=== PATIENT | male | born 1980 | race Caucasian/White ===

== ENCOUNTER 2017-09-01 17:21 | Emergency (ER) | payer OTHER ==
[2017-09-01] MEDS: KETOROLAC 30 MG/ML VIAL (J1885) IV (19:01)
[2017-09-01] MEDS: AMPICILLIN SOD/SULBACTAM SOD 3 GM in D5W MINI-BAG PLUS 100 ML IV (19:03)
[2017-09-01 19:07] LABS: BASO % 0.7 % (0.0-1.0); EOS # 0.2 10^3/uL (0.0-0.50); EOS % 3.7 % (0.0-3.0); HEMATOCRIT 42.1 % (42.0-52.0); HEMOGLOBIN 14.3 g/dl (14.0-18.0); IMMATURE GRANULOCYTE % 0.2 % (0-3.0); LYMPH # 1.5 10^3/uL (1.5-4.5); LYMPH % 25.9 % (24.0-44.0); MEAN CORPUSCULAR HEMOGLOBIN 28.4 pg (27.0-33.0); MEAN CORPUSCULAR VOLUME 83.5 fl (80.0-96.0); MONO # 0.5 10^3/uL (0.0-0.8); MONO % 8.8 % (0.0-5.0); NEUTROPHILS # 3.6 10^3/uL (1.8-7.7); NEUTROPHILS % 60.7 % (36.0-66.0); PLATELET COUNT, AUTOMATED 307 10^3/uL (150-450); RED BLOOD COUNT 5.04 10^6/uL (4.30-6.10); RED CELL DISTRIBUTION WIDTH 12.4 % (11.5-14.5); WHITE BLOOD COUNT 5.9 10^3/uL (4.0-10.0)
[2017-09-01 19:37] LABS: C REACTIVE PROTEIN QUANTITATIV < 0.30 MG/DL (0.00-0.30)
[2017-09-01] MEDS: NORCO 5/325MG TABLET (BULK FOR ED) PO (20:35)
== END 2017-09-01 20:39 | disposition home or self-care (01) ==
LOC: M ED 17:21
DX: K02.9 Dental caries, unspecified (principal); K04.7 Periapical abscess without sinus; F17.200 Nicotine dependence, unspecified, uncomplicated; F11.20 Opioid dependence, uncomplicated; Z88.5 Allergy status to narcotic agent; Z79.899 Other long term (current) drug therapy
CPT/HCPCS: J1885

== ENCOUNTER 2017-12-02 23:48 | Emergency (ER) | payer OTHER ==
[2017-12-03] MEDS: METHOCARBAMOL 500 MG TAB PO (00:18)
[2017-12-03] MEDS: NAPROXEN 250 MG TAB PO (00:18)
== END 2017-12-03 00:35 | disposition home or self-care (01) ==
LOC: M ED 23:48
DX: S39.012A Strain of muscle, fascia and tendon of lower back, initial encounter (principal); M54.16 Radiculopathy, lumbar region; X50.3XXA Overexertion from repetitive movements, initial encounter; Y92.099 Unspecified place in other non-institutional residence as the place of occurrence of the external cause; Y93.H1 Activity, digging, shoveling and raking; Y99.9 Unspecified external cause status; Z72.0 Tobacco use; Z79.899 Other long term (current) drug therapy; Z88.5 Allergy status to narcotic agent
CPT/HCPCS: 99283

== ENCOUNTER 2020-05-14 21:39 | Emergency (ER) | payer OTHER ==
[~2020-05-14] VITALS: Ht 188 cm; Wt 86.0 kg
[~2020-05-14 21:39] MED LIST: ACET650T61 PO; ATIV1TAB2; AUGM875T28 PO; BUPR8SUB SL; IBUP-1022 PO; NAPR-837 PO; No Historical Meds; PAXI20TA; ROBA500T PO; SEROQUEL
[2020-05-14] MEDS ORDERED: BUPR8SUB SL (21:59)
[2020-05-14] MEDS ORDERED: cloNIDine 0.2 MG TAB PO ONE (22:15)
[2020-05-14] MEDS ORDERED: ONDANSETRON 4MG/2ML VIAL IV ONE (22:15)
[2020-05-14] MEDS ORDERED: NS 1,000 ML IV ONE (22:15)
[2020-05-14 22:22] VITALS: BP 163/110
[2020-05-14] MEDS ORDERED: LORazepam 2 MG/ML VIAL IV STA ×2 (22:24→23:00)
[2020-05-14 22:30] LABS: BASO # 0.1 10^3/uL (0.0-0.2); BASO % 0.5 % (0.0-1.0); EOS # 0.2 10^3/uL (0.0-0.5); EOS % 2.2 % (0.0-3.0); HEMATOCRIT 44.1 % (42.0-52.0); HEMOGLOBIN 14.3 g/dl (13.5-17.5); LYMPH # 1.4 10^3/uL (1.5-5.0); LYMPH % 13.5 % (24.0-44.0); MEAN CORPUSCULAR HEMOGLOBIN 27.4 pg (27.0-33.0); MEAN CORPUSCULAR HGB CONC 32.4 g/dl (32.0-36.5); MEAN CORPUSCULAR VOLUME 84.5 fl (80.0-96.0); MONO # 0.8 10^3/uL (0.0-0.8); MONO % 7.3 % (0.0-5.0); NEUTROPHILS # 7.9 10^3/uL (1.5-8.5); NEUTROPHILS % 76.2 % (36.0-66.0); PLATELET COUNT, AUTOMATED 339 10^3/uL (150-450); RED BLOOD COUNT 5.22 10^6/uL (4.30-6.10); WHITE BLOOD COUNT 10.4 10^3/uL (4.0-10.0)
[2020-05-14 22:46] VITALS: BP 171/110
[2020-05-14 22:55] LABS: AMPHETAMINES LEVEL URINE POSITIVE (NEGATIVE); BARBITURATES URINE NEGATIVE (NEGATIVE); BENZODIAZEPINES URINE NEGATIVE (NEGATIVE); CANNABINOIDS URINE POSITIVE (NEGATIVE); COCAINE METABOLITE URINE NEGATIVE (NEGATIVE); METHADONE URINE NEGATIVE (NEGATIVE); OPIATES URINE POSITIVE (NEGATIVE); PHENCYCLIDINE URINE NEGATIVE (NEGATIVE)
[2020-05-14] MEDS ORDERED: cloNIDine 0.1 MG TAB PO ONE (23:00)
[2020-05-14 23:04] LABS: ACETAMINOPHEN LEVEL < 2.0 UG/ML (10.0-30.0); ALBUMIN 3.9 GM/DL (3.2-5.2); ALT/SGPT 130 U/L (12-78); BILIRUBIN,DIRECT < 0.1 MG/DL (0.0-0.2); BILIRUBIN,TOTAL 0.3 MG/DL (0.2-1.0); BLOOD UREA NITROGEN 13 MG/DL (7-18); CALCIUM LEVEL 8.8 MG/DL (8.5-10.1); CARBON DIOXIDE LEVEL 28 MEQ/L (21-32); CHLORIDE LEVEL 103 MEQ/L (98-107); CPK CREATINE PHOSPHOKINASE 287 U/L (39-308); CREATININE FOR GFR 0.61 MG/DL (0.70-1.30); ETHYL ALCOHOL (ETHANOL) < 0.003 % (0.000-0.010); GLOMERULAR FILTRATION RATE > 60.0 (>60); GLUCOSE, FASTING 82 MG/DL (70-100); POTASSIUM SERUM 3.5 MEQ/L (3.5-5.1); SALICYLATE LEVEL 2.6 MG/DL (5.0-30.0); SODIUM LEVEL 139 MEQ/L (136-145); TOTAL PROTEIN 7.1 GM/DL (6.4-8.2)
--- NOTE | 2020-05-17 07:44 | ECGEPIP ---
[facility] - ED Test Date: 2020-05-14 Pat Name: NAVYA CASTRO Department: Room: - Gender: Male Advertising Sales Consultant: johanna : 1980 Requested By: PO AGUILAR Order Number: [id number] Reading MD: Alethea Mena Measurements Intervals [place] Rate: 83 P: 39 [place]: 162 QRS: 50 QRSD: 95 T: 67 QT: 366 QTc: 432 Interpretive Statements SINUS RHYTHM WITH OCCASIONAL SUPRAVENTRICULAR PREMATURE COMPLEXES baseline artifact may affect interpretation No prior Electronically Signed on 05-17-2020 7:44:38 EST by Alethea Mena
== END 2020-05-15 00:08 | disposition home or self-care (01) ==
LOC: M ED 21:39
DX: F11.13 Opioid abuse with withdrawal (principal); Z88.5 Allergy status to narcotic agent
CPT/HCPCS: 36415; 80048; 80076; 80307; 82550; 84443; 85025; 93005; 93041; 94760; 96361; 96374; 96375; 96376; 99285; G0480; J2060; J2405

== ENCOUNTER → 2021-02-20 | Outpatient (REF) | payer OTHER, SELFPAY | LOC: M SFHCADAM 16:33 → EEVIPCON 16:33 | PROVIDERS: ATTEND Family Medicine | DX: L08.9 Local infection of the skin and subcutaneous tissue, unspecified (principal) ==

== ENCOUNTER → 2021-02-20 | Outpatient (CLI) | payer OTHER, SELFPAY ==
--- NOTE | 2021-02-20 13:47 | REP ---
INDICATION: LUMBAR DEGENERATIVE DISC DISEASE. COMPARISON: 08/24/2009 TECHNIQUE: Five views FINDINGS: The grade 3 L3 anterior wedge-shaped compression deformity seen on the prior exam is unchanged. There is bridging anterior osteophytosis of the L2-3 level status quo. There is a mild grade 1 superior endplate compression deformity seen involving L4 which represents a change. The remainder of the vertebral bodies are stable. There is mild to moderate disc space narrowing at every level with anterior lipping seen at every level. Bilateral L3-4 marginal osteophytosis is evident and has increased from the prior exam. IMPRESSION: Chronic changes as described above. <Electronically signed by Milton Porter > 02/20/21 [id number]
== END ==
LOC: M ADAMS 13:04
PROVIDERS: ATTEND Family Medicine
DX: M51.36 Other intervertebral disc degeneration, lumbar region (principal)

== ENCOUNTER → 2021-05-14 | Outpatient (REF) | payer SELFPAY | LOC: M SFHCADAM 13:39 | PROVIDERS: ATTEND Family Medicine | DX: Z53.20 Procedure and treatment not carried out because of patient's decision for unspecified reasons (principal) ==

== ENCOUNTER 2022-04-23 17:45 | Inpatient (IN) | payer OTHER, SELFPAY ==
[~2022-04-23] VITALS: Ht 188 cm; Wt 96.7 kg
[2022-04-23] MEDS ORDERED: NS 1,000 ML IV ONE ×2 (18:00→19:35)
[2022-04-23] MEDS ORDERED: ACETAMINOPHEN 650 MG SUPP PR ONE (18:00)
[2022-04-23] MEDS ORDERED: cefTRIAXone SOD 2 GM in D5W MINI-BAG PLUS 50 ML IV ONE (18:15)
[2022-04-23 18:32] LABS: HEMATOCRIT 37.1 % (42.0-52.0); HEMOGLOBIN 12.2 g/dl (13.5-17.5); MEAN CORPUSCULAR HEMOGLOBIN 23.7 pg (27.0-33.0); MEAN CORPUSCULAR HGB CONC 32.9 g/dl (32.0-36.5); RED BLOOD COUNT 5.15 10^6/uL (4.30-6.10); WHITE BLOOD COUNT 7.8 10^3/uL (4.0-10.0)
[2022-04-23 18:35] LABS: PLATELET COUNT, AUTOMATED 29 10^3/uL (150-450)
[2022-04-23] MEDS: propofoL 1,000 MG in IV 1 EA IV SCH ×2 (18:45→22:23)
[2022-04-23] MEDS ORDERED: ROCURONIUM BROMIDE 50 MG/5 ML VIAL IV ONE (18:45)
[2022-04-23] MEDS ORDERED: ETOMIDATE INJ 20MG/10ML VIAL IV ONE (18:45)
[2022-04-23 19:05] LABS: OSMOLALITY SERUM 277 MOSM/KG (275-295)
[2022-04-23 19:12] LABS: AMPHETAMINES LEVEL URINE POSITIVE (NEGATIVE); BARBITURATES URINE NEGATIVE (NEGATIVE); BENZODIAZEPINES URINE NEGATIVE (NEGATIVE); CANNABINOIDS URINE NEGATIVE (NEGATIVE); COCAINE METABOLITE URINE POSITIVE (NEGATIVE); METHADONE URINE NEGATIVE (NEGATIVE); OPIATES URINE NEGATIVE (NEGATIVE); PHENCYCLIDINE URINE NEGATIVE (NEGATIVE)
[2022-04-23 19:16] LABS: LYMPHOCYTES 4 % (16-44); MONOCYTES 1 % (0-5); NEUTROPHILS 93 % (28-66); PLATELET ESTIMATE MARKED DECREASE (NORMAL); TOXIC GRANULATION 2+; TOXIC VACUOLATION 1+
[2022-04-23 19:17] LABS: MICROCYTOSIS 2+
[2022-04-23 19:21] LABS: ACETAMINOPHEN LEVEL < 2.0 UG/ML (10.0-30.0); ALBUMIN 1.9 GM/DL (3.2-5.2); ALKALINE PHOSPHATASE 286 U/L (45-117); ALT/SGPT 34 U/L (12-78); AST/SGOT 65 U/L (7-37); BILIRUBIN,TOTAL 1.3 MG/DL (0.2-1.0); BLOOD UREA NITROGEN 62 MG/DL (7-18); CALCIUM LEVEL 7.5 MG/DL (8.5-10.1); CARBON DIOXIDE LEVEL 25 MEQ/L (21-32); CHLORIDE LEVEL 87 MEQ/L (98-107); CREATININE FOR GFR 2.28 MG/DL (0.70-1.30); ETHYL ALCOHOL (ETHANOL) 0.004 % (0.000-0.010); GLOMERULAR FILTRATION RATE 33.7 (>60); GLUCOSE, FASTING 104 MG/DL (70-100); POTASSIUM SERUM 3.6 MEQ/L (3.5-5.1); SALICYLATE LEVEL < 1.7 MG/DL (5.0-30.0); SODIUM LEVEL 123 MEQ/L (136-145); THYROID STIMULATING HORMONE 0.465 uIU/ML (0.358-3.740); TOTAL PROTEIN 5.9 GM/DL (6.4-8.2)
[2022-04-23 19:27] LABS: CK-MB VALUE MASS 6.2 NG/ML (<3.6); MB/CK RELATIVE INDEX 4.88 (< OR =4)
[2022-04-23 19:35] LABS: INR 1.28; PROTHROMBIN TIME 16.2 SECONDS (12.5-14.5)
[2022-04-23] MEDS ORDERED: VANCOMYCIN HCL 1,750 MG in NS 250 ML IV ONE (19:35)
[2022-04-23 19:36] LABS: PARTIAL THROMBOPLASTIN TIME 39.4 SECONDS (24.8-34.2)
[2022-04-23] MEDS ORDERED: VANCOMYCIN HCL 1,000 MG, VIAL MATE ADAPTER 1 EACH in D5W 250 ML IV ONE (20:00)
[2022-04-23] MEDS ORDERED: PATIENT NOTE (20:14)
[2022-04-23] MEDS ORDERED: AMPH1CAP16 PO (20:14)
[2022-04-23] MEDS ORDERED: HOME MED LIST COMPLETE! XX SCH (20:15)
[2022-04-23] MEDS ORDERED: MIDAZOLAM 100MG/100ML-0.9%NACL 100 MG in IV 1 EA IV SCH (20:15)
[2022-04-23] MEDS ORDERED: NS IV ONE (20:25)
[2022-04-23 20:31] LABS: LIPASE 157 U/L (73-393)
[2022-04-23] MEDS ORDERED: ASPIRIN 300 MG SUPP PR STA (20:35)
[2022-04-23] MEDS ORDERED: VANCOMYCIN HCL 750 MG, VIAL MATE ADAPTER 1 EACH in D5W 250 ML IV ONE (21:00)
[2022-04-23] MEDS ORDERED: ACETAMINOPHEN 650 MG SUPP PR PRN (21:50)
[2022-04-23] MEDS ORDERED: VANCOMYCIN HCL 1,000 MG, VIAL MATE ADAPTER 1 EACH in NS 250 ML IV SCH (22:15)
[2022-04-23 23:00] VITALS: BP 82/59
[2022-04-23] MEDS: MIDAZOLAM 100MG/100ML-0.9%NACL 100 MG in IV 1 EA IV SCH (23:00)
[2022-04-23] MEDS ORDERED: LR 1,000 ML IV ONE (23:05)
[2022-04-23 23:08] VITALS: BP 84/48
[2022-04-23 23:13] LABS: MAGNESIUM LEVEL 2.2 MG/DL (1.8-2.4)
[2022-04-23 23:15] VITALS: BP 77/46
[2022-04-23 23:30] VITALS: BP 74/53
[2022-04-23] MEDS: NOREPINEPHRINE 4MG IN D5 250ML 4 MG in IV 1 EA IV SCH ×2 (23:39)
[2022-04-23 23:45] VITALS: BP 72/46
[2022-04-23] MEDS ORDERED: FENTANYL DRIP LOCK BOX KEY 1 EACH XX PRN (23:45)
[2022-04-23] MEDS: fentaNYL CITRATE/NaCl 1,000 MCG in IV 1 EA IV SCH (23:58)
[2022-04-24] VITALS (92 sets, daily range): BP systolic 80–149; BP diastolic 45–81
[2022-04-24] MEDS: LR 1,000 ML IV SCH ×4 (00:56→16:06)
[2022-04-24] MEDS: KCL 10MEQ/100ML SWI (KRUN) 10 MEQ in IV 1 EA IV SCH ×2 (01:24→02:05)
[2022-04-24] MEDS: propofoL 1,000 MG in IV 1 EA IV SCH ×2 (02:07→06:41)
[2022-04-24 05:20] LABS: ABG BASE EXCESS -1.8 (-2.0-2.0); ABG HCO3 23.6 MEQ/L (22.0-26.0); ABG O2 SATURATION 98.6 % (95.0-99.0); ABG PARTIAL PRESSURE CO2 43.1 mmHg (35.0-45.0); ABG pH (ARTERIAL) 7.357 UNITS (7.350-7.450)
[2022-04-24] MEDS ORDERED: VANCOMYCIN HCL 750 MG, VIAL MATE ADAPTER 1 EACH in D5W 250 ML IV SCH (06:00)
[2022-04-24] MEDS: NOREPINEPHRINE 4MG IN D5 250ML 4 MG in IV 1 EA IV SCH ×8 (06:02→21:47)
[2022-04-24] MEDS ORDERED: VANCOMYCIN HCL 500 MG in D5W MINI-BAG PLUS 100 ML IV SCH (07:00)
[2022-04-24 08:30] LABS: BASO % 0.2 % (0.0-1.0); EOS # 0.1 10^3/uL (0.0-0.5); EOS % 0.6 % (0.0-3.0); HEMOGLOBIN 10.3 g/dl (13.5-17.5); LYMPH # 0.6 10^3/uL (1.5-5.0); LYMPH % 6.9 % (24.0-44.0); MEAN CORPUSCULAR HEMOGLOBIN 23.2 pg (27.0-33.0); MEAN CORPUSCULAR HGB CONC 30.3 g/dl (32.0-36.5); MEAN CORPUSCULAR VOLUME 76.6 fl (80.0-96.0); MONO # 0.3 10^3/uL (0.0-0.8); MONO % 4.1 % (2.0-8.0); NEUTROPHILS # 7.2 10^3/uL (1.5-8.5); NEUTROPHILS % 85.7 % (36.0-66.0); RED BLOOD COUNT 4.44 10^6/uL (4.30-6.10); WHITE BLOOD COUNT 8.4 10^3/uL (4.0-10.0)
[2022-04-24 08:34] LABS: CALCIUM LEVEL 7.2 MG/DL (8.5-10.1); CREATININE FOR GFR 1.75 MG/DL (0.70-1.30); GLOMERULAR FILTRATION RATE 45.7 (>60); POTASSIUM SERUM 3.7 MEQ/L (3.5-5.1)
[2022-04-24 08:39] LABS: PLATELET COUNT, AUTOMATED 25 10^3/uL (150-450)
[2022-04-24] MEDS ORDERED: LR 1,000 ML IV ONE ×2 (09:05→15:15)
[2022-04-24] MEDS ORDERED: MIDAZOLAM INJ 2MG/2ML VIAL (J2250 PER 1MG) IV PRN (09:45)
[2022-04-24] MEDS: MIDAZOLAM 100MG/100ML-0.9%NACL 100 MG in IV 1 EA IV SCH (10:16)
[2022-04-24] MEDS ORDERED: ACETAMINOPHEN TAB 650MG DOSE (2X325MG) NG ONE (10:30)
[2022-04-24] MEDS ORDERED: ACETAMINOPHEN 1000MG 100ML IV BAG IV PRN (11:35)
[2022-04-24] MEDS ORDERED: IBUPROFEN 400MG TAB NG ONE (11:35)
[2022-04-24] MEDS ORDERED: CEFEPIME HCL 2 GM in D5W 50 ML IV SCH ×3 (12:00)
[2022-04-24 12:04] LABS: FIBRINOGEN 533 MG/DL (268-480)
[2022-04-24 12:25] LABS: D-DIMER QUANT > 4000 ng/ml (<500)
[2022-04-24 13:23] LABS: HEPATITIS B SURFACE ANTIGEN NEGATIVE (NEGATIVE); HEPATITIS C VIRUS ABY INDEX 0.8 INDEX (<0.8); HIV 1&2 SCREEN CENTAUR NEGATIVE (NEGATIVE)
[2022-04-24] MEDS ORDERED: ROCURONIUM BROMIDE 50 MG/5 ML VIAL ONE (15:11)
[2022-04-24] MEDS ORDERED: ETOMIDATE INJ 20MG/10ML VIAL ONE (15:11)
[2022-04-24] MEDS: fentaNYL CITRATE/NaCl 1,000 MCG in IV 1 EA IV SCH (15:16)
[2022-04-24] MEDS: CEFTAROLINE FOSAMIL 600 MG in D5W MINI-BAG PLUS 50 ML IV SCH ×2 (15:18→21:33)
[2022-04-24] MEDS ORDERED: DAPTOmycin 750 MG in NS 50 ML IV SCH (16:00)
[2022-04-24] MEDS: VASOPRESSIN INJ 20 UNITS in NS 499 ML IV SCH (16:47)
[2022-04-24] MEDS: VANICREAM MOISTURIZING SKIN CREAM 113GM TUBE TOP SCH (21:34)
[2022-04-25] VITALS (35 sets, daily range): BP systolic 82–144; BP diastolic 49–82
[2022-04-25] MEDS: VASOPRESSIN INJ 20 UNITS in NS 499 ML IV SCH (00:22)
[2022-04-25 05:53] LABS: ABG BASE EXCESS -1.4 (-2.0-2.0); ABG HCO3 21.8 MEQ/L (22.0-26.0); ABG PARTIAL PRESSURE CO2 30.8 mmHg (35.0-45.0); ABG PARTIAL PRESSURE O2 110.2 mmHg (75.0-100.0); ABG STANDARD HCO3 23.3 MEQ/L (22.0-26.0); ABG TOTAL CO2 22.7 MEQ/L (22.0-29.0); ABG pH (ARTERIAL) 7.467 UNITS (7.350-7.450)
[2022-04-25 06:06] LABS: HEMATOCRIT 27.6 % (42.0-52.0); MEAN CORPUSCULAR HEMOGLOBIN 23.9 pg (27.0-33.0); MEAN CORPUSCULAR HGB CONC 32.6 g/dl (32.0-36.5); MEAN CORPUSCULAR VOLUME 73.2 fl (80.0-96.0); RED BLOOD COUNT 3.77 10^6/uL (4.30-6.10); WHITE BLOOD COUNT 9.3 10^3/uL (4.0-10.0)
[2022-04-25 06:09] LABS: PLATELET COUNT, AUTOMATED 31 10^3/uL (150-450)
[2022-04-25] MEDS: CEFTAROLINE FOSAMIL 600 MG in D5W MINI-BAG PLUS 50 ML IV SCH ×2 (06:23→14:03)
[2022-04-25 07:03] LABS: ALBUMIN 1.2 GM/DL (3.2-5.2); ALKALINE PHOSPHATASE 539 U/L (45-117); ALT/SGPT 19 U/L (12-78); AST/SGOT 51 U/L (7-37); BILIRUBIN,TOTAL 2.2 MG/DL (0.2-1.0); BLOOD UREA NITROGEN 49 MG/DL (7-18); CALCIUM LEVEL 7.4 MG/DL (8.5-10.1); CARBON DIOXIDE LEVEL 24 MEQ/L (21-32); CHLORIDE LEVEL 99 MEQ/L (98-107); CREATININE FOR GFR 1.37 MG/DL (0.70-1.30); GLOMERULAR FILTRATION RATE > 60.0 (>60); GLUCOSE, FASTING 91 MG/DL (70-100); POTASSIUM SERUM 3.4 MEQ/L (3.5-5.1); SODIUM LEVEL 133 MEQ/L (136-145); TOTAL PROTEIN 4.2 GM/DL (6.4-8.2)
[2022-04-25] MEDS ORDERED: LR 1,000 ML IV SCH (08:25)
[2022-04-25] MEDS ORDERED: SENNA 8.6 MG TAB (SENOKOT) PO PRN (08:25)
[2022-04-25] MEDS ORDERED: POTASSIUM CHLORIDE 10% LIQ 20 MEQ/15 ML UDC PO ONE (08:25)
[2022-04-25] MEDS ORDERED: SENNA 8.6 MG TAB (SENOKOT) PO SCH (09:00)
[2022-04-25] MEDS ORDERED: SANTYL OINT 30GM TOP SCH (09:00)
[2022-04-25] MEDS: VANICREAM MOISTURIZING SKIN CREAM 113GM TUBE TOP SCH (09:47)
[2022-04-25] MEDS: MIDAZOLAM 100MG/100ML-0.9%NACL 100 MG in IV 1 EA IV SCH (10:01)
[2022-04-25] MEDS ORDERED: IBUPROFEN 400MG TAB NG PRN (10:05)
[2022-04-25] MEDS ORDERED: LR 500 ML IV ONE (10:05)
[2022-04-25] MEDS ORDERED: IBUPROFEN 100MG 5ML SUSP UDC DYE FREE PO PRN ×2 (10:10→18:54)
[2022-04-25] MEDS: fentaNYL CITRATE/NaCl 1,000 MCG in IV 1 EA IV SCH ×2 (11:30→11:32)
[2022-04-25] MEDS ORDERED: ACETAMINOPHEN 1000MG 100ML IV BAG IV SCH (12:00)
[2022-04-25 13:05] LABS: INR 1.12; PROTHROMBIN TIME 14.7 SECONDS (12.5-14.5)
[2022-04-25 13:06] LABS: PARTIAL THROMBOPLASTIN TIME 33.9 SECONDS (24.8-34.2)
[2022-04-25 13:50] LABS: ALBUMIN 1.1 GM/DL (3.2-5.2); BILIRUBIN,DIRECT 2.1 MG/DL (0.0-0.2); BILIRUBIN,TOTAL 2.3 MG/DL (0.2-1.0); TOTAL PROTEIN 4.4 GM/DL (6.4-8.2)
[2022-04-25] MEDS ORDERED: ARGATROBAN 250 MG in D5W 247.5 ML IV SCH (15:00)
== END 2022-04-25 16:12 | disposition short-term general hospital (02) | DRG 720 ==
LOC: M ED 17:45 → EDBD 17:45 → M ED INP 21:42 → ENRESERV 22:06 → M ICU 22:47
PROVIDERS: ADMIT Internal Medicine Pulmonary Disease; ATTEND Internal Medicine Pulmonary Disease
PROC: 0BH17EZ Insertion of Endotracheal Airway into Trachea, Via Natural or Artificial Opening (ICD-10-PCS; principal; 2022-04-23)
PROC: 5A1945Z Respiratory Ventilation, 24-96 Consecutive Hours (ICD-10-PCS; 2022-04-23)
PROC: 02HV33Z Insertion of Infusion Device into Superior Vena Cava, Percutaneous Approach (ICD-10-PCS; 2022-04-24)
DX: A41.01 Sepsis due to Methicillin susceptible Staphylococcus aureus (principal); J96.00 Acute respiratory failure, unspecified whether with hypoxia or hypercapnia; R65.21 Severe sepsis with septic shock; I33.0 Acute and subacute infective endocarditis; G06.0 Intracranial abscess and granuloma; D69.59 Other secondary thrombocytopenia; I24.8 Other forms of acute ischemic heart disease; I76 Septic arterial embolism; G92.8 Other toxic encephalopathy; N17.9 Acute kidney failure, unspecified; L97.429 Non-pressure chronic ulcer of left heel and midfoot with unspecified severity; E87.1 Hypo-osmolality and hyponatremia; I87.2 Venous insufficiency (chronic) (peripheral); F15.10 Other stimulant abuse, uncomplicated; F14.10 Cocaine abuse, uncomplicated; Z88.5 Allergy status to narcotic agent; Z79.899 Other long term (current) drug therapy